=== PATIENT | female | born 1950 | race American Indian/Alaskan Native ===

== ENCOUNTER → 2016-11-23 | Outpatient (CLI) | payer MEDICARE, BC | END | disposition home or self-care (01) | LOC: CFH 11:01 | PROVIDERS: ATTEND Internal Medicine Cardiovascular Disease | DX: I50.9 Heart failure, unspecified (principal) | CPT/HCPCS: 93306 ==

== ENCOUNTER 2016-12-20 10:28 | Day surgery (SDC) | payer MEDICARE, BC, OTHER ==
[2016-12-18 13:04] VITALS: BP 108/63
[2016-12-18 13:42] LABS: BLOOD UREA NITROGEN 18 mg/dL (7-18)
[~2016-12-20] VITALS: Ht 162.6 cm; Wt 77.3 kg
[~2016-12-20 10:28] MED LIST: CARV6.2512 PO; CHOL200024 PO; FURO20TA3 PO; HYDR200T PO; INSU100I28 SC; INSU100V13 SC; LEVO100T PO; LISI-167 PO; LOVA20TA2 PO; POTA10TA5 PO; SPIR25TA3 PO
[2016-12-20] MEDS ORDERED: SODIUM CHLORIDE 0.9% 1,000 ML IV SCH (11:02)
[2016-12-20] MEDS ORDERED: ASPIRIN 325 MG TABLET EC ONE (11:19)
[2016-12-20] MEDS ORDERED: ZOLPIDEM 5MG TABLET PO PRN (11:30)
[2016-12-20] MEDS ORDERED: ONDANSETRON 2MG/ML, 2ML IVPush PRN (11:30)
[2016-12-20] MEDS ORDERED: BISACODYL 5 MG EC TABLET PO PRN (11:30)
[2016-12-20] MEDS ORDERED: BISACODYL 10 MG SUPP PR PRN (11:30)
[2016-12-20] MEDS ORDERED: ACETAMINOPHEN 325 MG TABLET PO PRN (11:30)
[2016-12-20] MEDS ORDERED: ASPIRIN 325 MG TABLET EC PO ONE (11:30)
[2016-12-20] MEDS ORDERED: FENTANYL PF 100 MCG/2ML ONE (11:40)
[2016-12-20] MEDS ORDERED: MIDAZOLAM 1 MG/ML, 5ML ONE (11:40)
[2016-12-20] MEDS ORDERED: LIDOCAINE 2%, 20ML ONE (11:40)
== END 2016-12-20 16:21 | disposition home or self-care (01) ==
LOC: CACL 10:28
PROVIDERS: ATTEND Internal Medicine Cardiovascular Disease
DX: R07.9 Chest pain, unspecified (principal); E78.4 Other hyperlipidemia; E03.9 Hypothyroidism, unspecified; I11.0 Hypertensive heart disease with heart failure; I50.9 Heart failure, unspecified; I26.99 Other pulmonary embolism without acute cor pulmonale; M06.9 Rheumatoid arthritis, unspecified; G47.30 Sleep apnea, unspecified; E11.65 Type 2 diabetes mellitus with hyperglycemia; J84.10 Pulmonary fibrosis, unspecified; Z88.8 Allergy status to other drugs, medicaments and biological substances; Z87.01 Personal history of pneumonia (recurrent)
CPT/HCPCS: 36415; 71020; 80048; 85025; 93458; 99152; 99153; C1760; C1894; J2250; J3010; J3490; Q9967

== ENCOUNTER → 2018-01-09 | Outpatient (CLI) | payer MEDICARE, BC, OTHER ==
[~2018-01-09] MED LIST changes: -HYDR200T PO; +HYDR200T72 PO
== END | disposition home or self-care (01) ==
LOC: CVU 13:32 → EDSTATUS 14:00
PROVIDERS: ATTEND Internal Medicine
DX: I35.8 Other nonrheumatic aortic valve disorders (principal); M35.1 Other overlap syndromes; I27.21 Secondary pulmonary arterial hypertension; J84.112 Idiopathic pulmonary fibrosis; E11.9 Type 2 diabetes mellitus without complications
CPT/HCPCS: 93306

== ENCOUNTER → 2018-02-17 | Outpatient (CLI) | payer MEDICARE, BC, OTHER | END | disposition home or self-care (01) | LOC: CARD 12:40 | PROVIDERS: ATTEND Internal Medicine | DX: J84.112 Idiopathic pulmonary fibrosis (principal); I27.21 Secondary pulmonary arterial hypertension; R06.02 Shortness of breath; M35.1 Other overlap syndromes | CPT/HCPCS: 94618 ==

== ENCOUNTER → 2020-05-10 | Outpatient (CLI) | payer MEDICARE, BC, OTHER ==
[~2020-05-10] MED LIST changes: -SPIR25TA3 PO; +SPIR25TA5 PO
== END | disposition home or self-care (01) ==
LOC: CVU 12:39
PROVIDERS: ATTEND Internal Medicine Cardiovascular Disease
DX: I34.0 Nonrheumatic mitral (valve) insufficiency (principal); I11.0 Hypertensive heart disease with heart failure; I50.9 Heart failure, unspecified
CPT/HCPCS: 93306